=== PATIENT | female | born 1955 | race Caucasian/White ===

== ENCOUNTER → 2017-02-20 17:22 | Outpatient (CLI) | payer BC | END | disposition home or self-care (01) | LOC: D.MAMMO 11:30 | DX: Z12.31 Encounter for screening mammogram for malignant neoplasm of breast (principal) ==

== ENCOUNTER 2017-03-20 08:59 | Outpatient (CLI) | payer BC | END 2017-03-20 09:39 | LOC: D.MAMMO 08:59 | DX: R92.8 Other abnormal and inconclusive findings on diagnostic imaging of breast (principal) ==

== ENCOUNTER → 2017-03-28 06:57 | Outpatient (CLI) | payer BC | END | disposition home or self-care (01) | LOC: D.US 06:57 | DX: N63 Unspecified lump in breast (principal) ==